=== PATIENT | female | born 1960 | race Caucasian/White ===

== ENCOUNTER 2023-02-02 10:28 | Outpatient (CLI) | payer BC, SELFPAY ==
--- NOTE | ~2023-02-02 | US_ITS ---
EXAMINATION: US VENOUS LOWER EXT LELE DATE: 02/02/2023 12:19 INDICATION: Venous reflux in the lower extremities TECHNIQUE: Grayscale images without and with compression and Doppler images of the bilateral lower ex tremity veins were obtained. COMPARISON: None. FINDINGS: Right lower extremity: The right common femoral vein, profunda (deep) femoral vein, femoral vein, popliteal vein, peroneal t runk, posterior tibial veins and greater saphenous vein are patent. common femoral vein: no reflux femoral vein: no reflux popliteal vein: no reflux posterior tibial veins: no reflux profunda femoral vein: no reflux peroneal veins: no reflux greater saphenous vein: no reflux lesser saphenous vein: no reflux Greater saphenous Origin: 5.5 mm no reflux Mid thigh: 4.4 mm no reflux Potuu-jch-tgiy: 4.2 mm no reflux Drovq-vze-fbke: 2.1 mm no reflux Mid calf: 1.9 mm no reflux Ankle: 2.3 mm no reflux Lesser saphenous Proximal: 2.2 mm no reflux Mid: 2.1 mm no reflux Distal: 1.0 mm no reflux Left lower extremity: The left common femoral vein, profunda femoral vein, femoral vein, popliteal vein, peroneal trunk, po sterior tibial veins and greater saphenous vein are patent. 4.6 x 1.8 x 1.4 cm Souza's cyst at the le ft popliteal fossa. common femoral vein: no reflux femoral vein: no reflux popliteal vein: no reflux posterior tibial veins: no reflux profunda femoral vein: no reflux peroneal veins: no reflux greater saphenous vein: no reflux lesser saphenous vein: no reflux Greater saphenous Origin: 3.7 mm no reflux Mid thigh: 3.9 mm no reflux Dvslw-tlj-vmgo: 2.8 mm no reflux Quosk-olp-ciev: 3.6 mm no reflux Mid calf: 1.7 mm no reflux Ankle: 1.3 mm no reflux Lesser saphenous Proximal: 1.8 mm no reflux and not seen in the more distal calf. IMPRESSION: 1. Patent bilateral lower extremity veins. No evidence of deep venous thrombosis. 2. No reflux in either lower extremity. 3. Moderate-sized left Souza's cyst. Reviewed, dictated and finalized at location A. IMPRESSION: 1. Patent bilateral lower extremity veins. No evidence of deep venous thrombos is. 2. No reflux in either lower extremity. 3. Moderate-sized left Souza's cyst.
== END 2023-02-02 10:29 | disposition home or self-care (01) ==
PROVIDERS: PCP Family Medicine; Visit Provider Orthopaedic Surgery
DX: M79.89 Other specified soft tissue disorders (principal); M71.22 Synovial cyst of popliteal space [Baker], left knee
CPT/HCPCS: 93970